=== PATIENT | male | born 2000 | race Asian ===

== ENCOUNTER 2021-07-15 21:28 | Inpatient (IN) | payer OTHER ==
[~2021-07-15] VITALS: Ht 175.3 cm; Wt 61.7 kg
[2021-07-15 22:34] VITALS: BP 129/68
[2021-07-15] MEDS ORDERED: ACETAMINOPHEN 325 MG TAB PO PRN (22:45)
[2021-07-15 23:38] VITALS: BP 129/68
[2021-07-16] VITALS (8 sets, daily range): BP systolic 99–129; BP diastolic 54–68
[2021-07-16 06:55] LABS: BASOPHILS % 0.5 % (0.0-1.0); EOSINOPHILS # (AUTO) 0.2 (0.0-0.4); HEMATOCRIT 44.7 % (38.2-49.6); HEMOGLOBIN 14.8 g/dL (14.0-18.0); LYMPHOCYTES # (AUTO) 2.1 (1.0-3.2); LYMPHOCYTES % 33.4 % (18.0-39.1); MEAN CORPUSCULAR HEMOGLOBIN 28.7 pg (28-32); MEAN CORPUSCULAR HGB CONC 33.1 g/dL (31-35); MEAN CORPUSCULAR VOLUME 86.8 fL (81-99); MONOCYTES # (AUTO) 0.5 (0.2-0.8); MONOCYTES % 7.3 % (4.4-11.3); NEUTROPHILS # (AUTO) 3.5 (2.1-6.9); NEUTROPHILS % 55.5 % (38.7-80.0); PLATELET COUNT 216 x10e3/uL (140-360); RED BLOOD COUNT 5.15 x10e6/uL (4.3-5.7); RED CELL DISTRIBUTION WIDTH 12.5 % (11.7-14.4)
[2021-07-16 07:15] LABS: ALBUMIN 4.1 g/dL (3.5-5.0); ALBUMIN/GLOBULIN RATIO 1.4 (0.8-2.0); ANION GAP 13.2 mmol/L (8-16); CALCIUM 9.1 mg/dL (8.4-10.2); CREATININE, SERUM 1.05 mg/dL (0.72-1.25); POTASSIUM 4.2 mmol/L (3.5-5.1)
[2021-07-16] MEDS ORDERED: DOCUSATE SODIUM 100 MG CAP PO PRN (09:00)
[2021-07-16] MEDS ORDERED: ONDANSETRON HCL INJ 2MG/ML 2ML 2 MG/ML VIAL IV PRN (09:00)
[2021-07-17] VITALS (8 sets, daily range): BP systolic 92–106; BP diastolic 42–68
[2021-07-17] MEDS ORDERED: ONDANSETRON HCL 4 MG ORAL DISINTEGRATING TAB PO PRN (10:45)
[2021-07-18] VITALS (7 sets, daily range): BP systolic 95–116; BP diastolic 56–70
[2021-07-19] VITALS (7 sets, daily range): BP systolic 93–108; BP diastolic 54–66
[2021-07-20] VITALS: BP 101/60
[2021-07-20 04:00] VITALS: BP 97/56
[2021-07-20] MEDS ORDERED: ACETAMINOPHEN325 M1 PO (05:47)
[2021-07-20] MEDS ORDERED: PEPCID20 MG PO (05:47)
[2021-07-20 07:50] VITALS: BP 109/69
[2021-07-20 08:12] VITALS: BP 109/69
== END 2021-07-20 11:05 | disposition home or self-care (01) | DRG 202 ==
LOC: MED/SURG2 21:28
PROVIDERS: ADMIT Internal Medicine; ATTEND Internal Medicine
DX: J20.9 Acute bronchitis, unspecified (principal); R04.2 Hemoptysis; R63.4 Abnormal weight loss; F17.210 Nicotine dependence, cigarettes, uncomplicated; Z20.822 Contact with and (suspected) exposure to COVID-19; Z68.20 Body mass index [BMI] 20.0-20.9, adult
CPT/HCPCS: 36415; 71045; 80053; 85025; 87116; 87206; 87400; U0002